=== PATIENT | female | born 1990 | race American Indian/Alaskan Native ===

== ENCOUNTER 2020-10-27 10:58 | Emergency (ER) | payer MEDICAID ==
[2020-10-27] MEDS ORDERED: ONDANSETRON 4 MG/2 ML INJ IV ONE ×2 (11:13→13:58)
[2020-10-27] MEDS ORDERED: FAMOTIDINE 20 MG/2 ML INJ IV ONE (11:13)
[2020-10-27] MEDS ORDERED: SODIUM CHLORIDE 0.9% 1000 ML 1,000 ML IV ONE (11:13)
[2020-10-27] MEDS ORDERED: DICYCLOMINE 20 MG/2 ML INJ IM ONE (11:13)
--- NOTE | 2020-10-27 11:23 | Emergency Department Report ---
<KATHI WHITTAKER S - Last Filed: 10/27/20 15:28> ED Abdominal Pain HPI - General Chief Complaint: Abdominal Pain Stated Complaint: ABD PAINS Time Seen by Provider: 10/27/20 11:13 - Related Data Previous Rx's Medication Instructions Recorded Last Taken Type Famotidine [Pepcid] 40 mg PO QHS #14 tablet 10/27/20 Unknown Rx Ondansetron [Zofran Odt] 4 mg PO Q8HR PRN #10 tab.rapdis 10/27/20 Unknown Rx Sucralfate [Carafate] 1 gm PO ACHS 7 Days #21 tablet 10/27/20 Unknown Rx traMADoL [Ultram 50 MG tab] 50 mg PO Q6HR PRN #10 tablet 10/27/20 Unknown Rx Allergies Allergy/AdvReac Type Severity Reaction Status Date / Time codeine Allergy Itching Verified 10/27/20 15:05 ED Past Medical Hx - Medications Home Medications: Home Medications Medication Instructions Recorded Confirmed Last Taken Type Famotidine [Pepcid] 40 mg PO QHS #14 tablet 10/27/20 Unknown Rx Ondansetron [Zofran Odt] 4 mg PO Q8HR PRN #10 tab.rapdis 10/27/20 Unknown Rx Sucralfate [Carafate] 1 gm PO ACHS 7 Days #21 tablet 10/27/20 Unknown Rx traMADoL [Ultram 50 MG tab] 50 mg PO Q6HR PRN #10 tablet 10/27/20 Unknown Rx ED Medical Decision Making - Lab Data Result diagrams: 10/27/20 11:29 10/27/20 11:29 - Medical Decision Making I saw this patient in conjunction with the Kaila KOHLER. The patient presents with the complaint of epigastric and left upper quadrant abdominal pain with some radiation towards the back that is associated with some nausea and vomiting. During my examination the patient does not have any right upper quadrant abdominal tenderness to palpation but does have some mild epigastric and left upper quadrant reproducible tenderness to palpation. No guarding or rebound tenderness. No Hogue sign. The patient had a CT scan of the abdomen and pelvis that showed gallstones with out signs of cholecystitis and then recommended a right upper quadrant ultrasound. The ultrasound was completed that shows multiple gallstones and once again there is no definitive evidence of cholecystitis. There is some slight increased gallbladder wall thickening but there is no increased gallb ladder size, pericholecystic fluid, or any other signs of acute cholecystitis. The patient's labs are unremarkable including no leukocytosis. Labs have been reassuring including being afebrile. The patient will be given pain medication and antiemetics and an outpatient referral for general surgery. We discussed outpatient elective cholecystectomy and return precautions. ED Disposition Clinical Impression: Abdominal pain Qualifiers: Abdominal location: left upper quadrant Qualified Code(s): R10.12 - Left upper quadrant pain Nausea & vomiting Qualifiers: Vomiting type: unspecified Vomiting Intractability: non-intractable Qualified Code(s): R11.2 - Nausea with vomiting, unspecified Cholelithiases Qualifiers: Cholelithiasis location: gallbladder Cholecystitis presence: without cholecystitis Biliary obstruction: without biliary obstruction Qualified Code(s): K80.20 - Calculus of gallbladder without cholecystitis without obstruction Disposition: TO HOME OR SELFCARE Condition: Stable Instructions: Cholelithiasis, Gastritis, Adult, Cannabinoid Hyperemesis Syndrome, Abdominal Pain (ED) Additional Instructions: Please take medication as prescribed. Increase your water intake over the next several days. Eat a bland liquid diet and slowly advance your diet as tolerated. Follow-up with your primary care doctor. Follow-up with general surgeon. Return to emergency room for any new or worsening symptoms including but not limited to worsening pain, fever, unable to tolerate by mouth intake, etc. Prescriptions: Famotidine [Pepcid] 40 mg PO QHS #14 tablet Sucralfate [Carafate] 1 gm PO ACHS 7 Days #21 tablet traMADoL [Ultram 50 MG tab] 50 mg PO Q6HR PRN #10 tablet PRN Reason: Pain , Severe (7-10) Ondansetron [Zofran Odt] 4 mg PO Q8HR PRN #10 tab.rapdis PRN Reason: Nausea And Vomiting Referrals: ISAK PUGA [Other] - 2-3 Days DENIZ MAJANO DO [Staff Physician] - 2-3 Days Print Language: AZERI <KAILA GASTELUM - Last Filed: 10/27/20 16:16> ED Abdominal Pain HPI - General Source: patient, EMS Mode of arrival: Wheelchair Limitations: No Limitations - History of Present Illness Initial Comments: Patient is a 29-year-old female presents emergency room complaints of left upper quadrant abdominal pain that began earlier this morning. She has associated nausea. She states that she was forcing herself to vomit. She states it felt like it was gas. She denies any diarrhea. She states she had a normal bowel movement this morning. She denies any dysuria, urinary symptoms, vaginal discharge. No past medical history of hypertension. Allergy to codeine. Last menstrual cycle 10/13/2020. She denies any past abdominal surgical history. She is a heavy marijuana smoker. She last smoked marijuana yesterday. ED Review of Systems ROS: Stated complaint: ABD PAINS Other details as noted in HPI Comment: All other systems reviewed and negative ED Physical Exam - General Limitations: No Limitations General appearance: alert, in no apparent distress - Head Head exam: Present: atraumatic, normocephalic - Eye Eye exam: Present: normal appearance - ENT ENT exam: Present: mucous membranes moist - Respiratory Respiratory exam: Present: normal lung sounds bilaterally. Absent: respiratory distress, wheezes, rales, rhonchi, stridor, chest wall tenderness, accessory muscle use, decreased breath sounds, prolonged expiratory - Cardiovascular Cardiovascular Exam: Present: regular rate, normal rhythm, normal heart sounds. Absent: systolic murmur, diastolic murmur, rubs, gallop - GI/Abdominal GI/Abdominal exam: Present: soft, tenderness (LUQ), normal bowel sounds. Absent: distended, guarding, rebound, rigid - Neurological Exam Neurological exam: Present: alert, oriented X3 - Psychiatric Psychiatric exam: Present: normal affect, normal mood - Skin Skin exam: Present: warm, dry, intact ED Course Vital Signs 10/27/20 10/27/20 10/27/20 11:00 12:26 16:05 Temperature 97.3 F L 97.9 F Pulse Rate 85 78 71 Respiratory 22 18 16 Rate Blood Pressure 137/87 Blood Pressure 158/91 139/80 [Left] O2 Sat by Pulse 100 100 100 Oximetry ED Medical Decision Making - Lab Data Result diagrams: 10/27/20 11:29 10/27/20 11:29 Lab Results 10/27/20 10/27/20 10/27/20 Range/Units 11:29 11:29 11:29 WBC 10.1 (4.5-11.0) K/mm3 RBC 3.86 (3.65-5.03) M/mm3 Hgb 12.2 (10.1-14.3) gm/dl Hct 36.0 (30.3-42.9) % MCV 93 (79-97) fl MCH 32 (28-32) pg MCHC 34 (30-34) % RDW 12.5 L (13.2-15.2) % Plt Count 299 (140-440) K/mm3 Lymph % (Auto) 9.3 L (13.4-35.0) % Roberts % (Auto) 3.4 (0.0-7.3) % Eos % (Auto) 0.1 (0.0-4.3) % Baso % (Auto) 0.5 (0.0-1.8) % Lymph # (Auto) 0.9 L (1.2-5.4) K/mm3 Roberts # (Auto) 0.3 (0.0-0.8) K/mm3 Eos # (Auto) 0.0 (0.0-0.4) K/mm3 Baso # (Auto) 0.0 (0.0-0.1) K/mm3 Seg Neutrophils % 86.7 H (40.0-70.0) % Seg Neutrophils # 8.8 H (1.8-7.7) K/mm3 Sodium 135 L (137-145) mmol/L Potassium 3.5 L (3.6-5.0) mmol/L Chloride 98.9 (98-107) mmol/L Carbon Dioxide 26 (22-30) mmol/L Anion Gap 14 mmol/L BUN 7 (7-17) mg/dL Creatinine 0.6 (0.6-1.2) mg/dL Estimated GFR > 60 ml/min BUN/Creatinine Ratio 12 % Glucose 129 H (65-100) mg/dL Calcium 9.6 (8.4-10.2) mg/dL Total Bilirubin 0.40 (0.1-1.2) mg/dL AST 19 (5-40) units/L ALT 12 (7-56) units/L Alkaline Phosphatase 69 (35-129) units/L Total Protein 8.0 (6.3-8.2) g/dL Albumin 3.9 (3.9-5) g/dL Albumin/Globulin Ratio 1.0 % Lipase 20 (13-60) units/L HCG, Qual Negative (Negative) Urine Color (Yellow) Urine Turbidity (Clear) Urine pH (5.0-7.0) Ur Specific [place] (1.003-1.030) Urine Protein (Negative) mg/dL Urine Glucose (UA) (Negative) mg/dL Urine Ketones (Negative) mg/dL Urine Blood (Negative) Urine Nitrite (Negative) Urine Bilirubin (Negative) Urine Urobilinogen (<2.0) mg/dL Ur Leukocyte Esterase (Negative) Urine WBC (Auto) (0.0-6.0) /HPF Urine RBC (Auto) (0.0-6.0) /HPF U Epithel Cells (Auto) (0-13.0) /HPF Urine Mucus /HPF 10/27/20 Range/Units 14:47 WBC (4.5-11.0) K/mm3 RBC (3.65-5.03) M/mm3 Hgb (10.1-14.3) gm/dl Hct (30.3-42.9) % MCV (79-97) fl MCH (28-32) pg MCHC (30-34) % RDW (13.2-15.2) % Plt Count (140-440) K/mm3 Lymph % (Auto) (13.4-35.0) % Roberts % (Auto) (0.0-7.3) % Eos % (Auto) (0.0-4.3) % Baso % (Auto) (0.0-1.8) % Lymph # (Auto) (1.2-5.4) K/mm3 Roberts # (Auto) (0.0-0.8) K/mm3 Eos # (Auto) (0.0-0.4) K/mm3 Baso # (Auto) (0.0-0.1) K/mm3 Seg Neutrophils % (40.0-70.0) % Seg Neutrophils # (1.8-7.7) K/mm3 Sodium (137-145) mmol/L Potassium (3.6-5.0) mmol/L Chloride (98-107) mmol/L Carbon Dioxide (22-30) mmol/L Anion Gap mmol/L BUN (7-17) mg/dL Creatinine (0.6-1.2) mg/dL Estimated GFR ml/min BUN/Creatinine Ratio % Glucose (65-100) mg/dL Calcium (8.4-10.2) mg/dL Total Bilirubin (0.1-1.2) mg/dL AST (5-40) units/L ALT (7-56) units/L Alkaline Phosphatase (35-129) units/L Total Protein (6.3-8.2) g/dL Albumin (3.9-5) g/dL Albumin/Globulin Ratio % Lipase (13-60) units/L HCG, Qual (Negative) Urine Color Yellow (Yellow) Urine Turbidity Clear (Clear) Urine pH 8.0 H (5.0-7.0) Ur Specific [place] 1.031 H (1.003-1.030) Urine Protein <15 mg/dl (Negative) mg/dL Urine Glucose (UA) Neg (Negative) mg/dL Urine Ketones Tr (Negative) mg/dL Urine Blood Neg (Negative) Urine Nitrite Neg (Negative) Urine Bilirubin Neg (Negative) Urine Urobilinogen < 2.0 (<2.0) mg/dL Ur Leukocyte Esterase Neg (Negative) Urine WBC (Auto) 1.0 (0.0-6.0) /HPF Urine RBC (Auto) 1.0 (0.0-6.0) /HPF U Epithel Cells (Auto) 2.0 (0-13.0) /HPF Urine Mucus Few /HPF - Radiology Data Radiology results: report reviewed Ordering Physician: EDITA CARBAJAL Date of Service: 10/27/20 Procedure(s): US abdomen complete Accession Number(s): [id number] cc: EDITA CARBAJAL ULTRASOUND ABDOMEN, COMPLETE INDICATION: LUQ abd pain, abnormal CT. COMPARISON: CT abdomen pelvis with contrast performed earlier today. FINDINGS: Pancreas: No significant abnormality. Abdominal Aorta: No significant abnormality. IVC: No significant abnormality. Liver: The liver measures 13.4 cm in length. No significant abnormality. Normal hepatopedal blood flow in the main portal vein. Gallbladder: At least 2 gallstones are identified. A large stone in the gal lbladder fundus measures 1.9 cm. A smaller gallstone in the proximal gallbladder measures 1.2 cm. The gallbladder wall is slightly thickened measuring 3.4 mm. The part maker notes a positive Hogue sign. Bile ducts: No significant abnormality. Common bile duct measures 5.2 mm. Kidneys: Right: 10.9 cm in length. No significant abnormality. Left: 10.6 cm in length. No significant abnormality. Spleen: No significant abnormality. Free fluid: None. Additional Findings: None. IMPRESSION: Cholelithiasis. Minimal gallbladder wall thickening. Positive Hogue sign was reported by the part maker. Correlate for early acute cholecystitis.. Signer Name: David Reyes Jr, MD Signed: 10/27/2020 2:50 PM Workstation Name: [id number] Transcribed By: TTR Dictated By: DAVID REYES JR, MD Electronically Authenticated By: DAVID REYES JR, MD Signed Date/Time: 10/27/20 1450 DD/ 1447 TD/TT: Critical care attestation.: If time is entered above; I have spent that time in minutes in the direct care of this critically ill patient, excluding procedure time. ED Disposition Is pt being admited?: No Does the pt Need Aspirin: No Time of Disposition: 15:32
[2020-10-27 11:48] LABS: Basophils % (Auto) 0.5 % (0.0-1.8); Eosinophils % (Auto) 0.1 % (0.0-4.3); Hemoglobin 12.2 gm/dl (10.1-14.3); Lymphocytes # (Auto) 0.9 K/mm3 (1.2-5.4); Lymphocytes % (Auto) 9.3 % (13.4-35.0); Mean Corpuscular HGB Conc 34 % (30-34); Mean Corpuscular Volume 93 fl (79-97); Monocytes # (Auto) 0.3 K/mm3 (0.0-0.8); Monocytes % (Auto) 3.4 % (0.0-7.3); Platelet Count 299 K/mm3 (140-440); Red Blood Count 3.86 M/mm3 (3.65-5.03); Red Cell Distribution Width 12.5 % (13.2-15.2)
[2020-10-27 12:36] LABS: Alanine Aminotransferase 12 units/L (7-56); Albumin 3.9 g/dL (3.9-5); Blood Urea Nitrogen 7 mg/dL (7-17); Calcium 9.6 mg/dL (8.4-10.2); Hemolysis Index 13
[2020-10-27 12:37] LABS: BUN/Creatinine Ratio 12
[2020-10-27] MEDS ORDERED: MORPHINE 4 MG/1 ML INJ IV ONE (13:58)
--- NOTE | 2020-10-27 14:54 | Ultrasound Report ---
ULTRASOUND ABDOMEN, COMPLETE INDICATION: LUQ abd pain, abnormal CT. COMPARISON: CT abdomen pelvis with contrast performed earlier today. FINDINGS: Pancreas: No significant abnormality. Abdominal Aorta: No significant abnormality. IVC: No significant abnormality. Liver: The liver measures 13.4 cm in length. No significant abnormality. Normal hepatopedal blood fl ow in the main portal vein. Gallbladder: At least 2 gallstones are identified. A large stone in the gallbladder fundus measures 1 .9 cm. A smaller gallstone in the proximal gallbladder measures 1.2 cm. The gallbladder wall is sligh tly thickened measuring 3.4 mm. The almond huller notes a positive Hogue sign. Bile ducts: No significant abnormality. Common bile duct measures 5.2 mm. Kidneys: Right: 10.9 cm in length. No significant abnormality. Left: 10.6 cm in length. No signif icant abnormality. Spleen: No significant abnormality. Free fluid: None. Additional Findings: None. IMPRESSION: Cholelithiasis. Minimal gallbladder wall thickening. Positive Hogue sign was reported by the sonogra pher. Correlate for early acute cholecystitis.. Signer Name: David Reyes Jr, MD Signed: 10/27/2020 2:50 PM Workstation Name: [id number]
[2020-10-27 15:03] LABS: Bilirubin,Urine NEG (Negative); Blood,Urine NEG (Negative); Color,Urine Yellow (Yellow); Mucus,Urine FEW /HPF; Protein,Urine <15 mg/dL mg/dL (Negative); Urobilinogen,Urine < 2.0 mg/dL (<2.0)
[2020-10-27 16:06] VITALS: BP 139/80
--- NOTE | 2020-10-31 11:47 | Cat Scan Report ---
CT ABDOMEN AND PELVIS WITH CONTRAST HISTORY: abd pain, n/v. COMPARISON: None. TECHNIQUE: CT images of the abdomen and pelvis were obtained following administration of intravenous contrast. All CT scans at this location are performed using CT dose reduction for ALARA by means of automated exposure control. CONTRAST: 100 ml of intravenous contrast administered. FINDINGS: Lungs/bones: Lung bases are clear Abdomen/pelvis: The liver, spleen, adrenal glands, pancreas appear normal. Gallbladder may be mildly distended.. No free fluid in the upper abdomen. Celiac and SMA appear normal. Kidneys unremarkable. Appendix appears normal. Uterus and ovaries visualized appear normal. Urinary bladder is intact. Panc reas appears normal. Uterus is heterogeneous on delayed images. Mild scoliotic curvature the spine. IMPRESSION: 1. Gallbladder may be mildly distended. There is right upper abdominal pain gallbladder ultrasound co uld be performed. 2. Appendix appears normal. No bowel obstruction Uterus is heterogeneous, nonspecific. 3. Trace free fluid is seen within the pelvis. There is pelvic pain further evaluation uterus and ova yolanda could be performed with ultrasound. Signer Name: Michael Call MD Signed: 10/27/2020 1:03 PM Workstation Name: [id number]
== END 2020-10-27 16:06 | disposition home or self-care (01) ==
LOC: EDUNIT# → ED 10:58
DX: K80.20 Calculus of gallbladder without cholecystitis without obstruction (principal); Z79.899 Other long term (current) drug therapy; Z88.6 Allergy status to analgesic agent
CPT/HCPCS: 36415; 74177; 76700; 80053; 81001; 83690; 84703; 85025; 96361; 96372; 96374; 96375; 96376; 99284; J0500; J2270; J2405; J7030; Q9967